=== PATIENT | male | born 1970 | race Caucasian/White ===

== ENCOUNTER 2024-12-23 08:28 | Outpatient (CLI) | payer BC, SELFPAY ==
--- NOTE | 2024-12-23 08:45 | MR_ITS ---
[facility] [address] [facility] [address] Phone:?[phone] Fax:?[phone] Referring Physician Information: Roly Ordonez M.D. [address] [place] [id number] Phone:?[phone] Fax:?[phone] Patient:?Alen Santoro D.O.B:?1970 Sex:?Male Phone:?[phone] [facility] MRN:?[id number] Exam Date:?12/23/2024 EXAM: MRI OF THE RIGHT KNEE CLINICAL INFORMATION: The patient is a 54-year-old with right knee pain. Evaluate for internal derangement. Evaluate medial meniscus. PRIOR SURGERY: The patient has a history of prior surgery to the region. COMPARISON STUDIES: Comparison is made to the prior MRI examination dated 10/19/2023. TECHNICAL INFORMATION: Imaging was performed on a high-field, 1.5 Lisa MR scanner. Axial proton-density and fat-suppressed T2 imaging of the right knee was performed in addition to sagittal proton-density and fat-suppressed proton- density imaging. Coronal proton-density and coronal STIR imaging was also performed. FINDINGS: Articular/Extraarticular collections: Effusion: Moderate. Popliteal cyst: Minimal. Loose bodies: No well-defined intra-articular loose bodies are present. Subcutaneous and extraarticular soft tissues: Within normal limits. Osseous structures: There is cortical irregularity, subcortical edema, and mild subcortical cystic change noted along the weightbearing surfaces of the medial femoral condyle and medial tibial plateau. The findings are in keeping with the chondral loss and meniscal abnormalities discussed below and have progressed in appearance when compared to the prior examination. No other bony abnormalities about the knee are seen. Ligamentous structures: ACL: The anterior cruciate ligament is abnormal in appearance. There is thickening of the ACL with indistinctness of its margins and increased intrasubstance signal intensity. The findings are in keeping with chronic residual changes of a prior incomplete ACL sprain. No transverse disruption of ACL fibers can be seen. PCL: Intact and normal in appearance. MCL: Chronic thickening of the MCL can be seen, in keeping with residual changes of a prior incomplete sprain. No evidence for acute injury is identified. No transverse disruption of MCL fibers is noted. LCL: Intact and normal in appearance. Posterolateral corner: Intact and normal in appearance. Posteromedial corner: No posteromedial corner soft tissue injury. Semimembranosus and pes anserine tendons demonstrate no tendinopathy or associated bursitis. Extensor mechanism/Patellar retinacular structures: Patellar tendon: Intact, without tendinopathy. Quadriceps tendon: Intact, without tendinopathy. Retinacula: The medial and lateral retinacula are intact. The medial patellofemoral ligament is intact. Medial compartment: Medial meniscus: Evidence for prior partial medial meniscectomy is thought to be present. There is recurrent or residual tearing involving the middle and posterior portions of the medial meniscal remnant seen on coronal series 7 image 19 and on sagittal series 6 image 24. No well-defined tearing of the anterior horn of the medial meniscus can be seen. No parameniscal cyst formation is identified. Medial femoral condyle: Broad-based, full-thickness chondral loss can be seen along the central and posterior articular surfaces of the medial femoral condyle with underlying bony change. Medial tibial plateau: Broad-based, full-thickness chondral loss can be seen along the central and medial weightbearing surfaces of the medial tibial plateau. Underlying bony changes are noted. Lateral compartment: Lateral meniscus: Poorly defined tearing of the anterior horn of the lateral meniscus is present and can be seen on sagittal series 12. The middle and posterior portions of the lateral meniscus appear intact. No parameniscal cyst formation is identified. Lateral femoral condyle: Grade II chondromalacia can be seen along the weightbearing surfaces of the lateral femoral condyle. No full-thickness chondral defects are seen. Lateral tibial plateau: Grade II to III chondromalacia can be seen along the posterior weightbearing surfaces of the lateral tibial plateau. Patellofemoral compartment: Patella: There are changes of full-thickness or near full-thickness chondral loss involving the medial patellar facet on axial series 4 image 12. No chondral injuries of the lateral facet are noted. Trochlea: Full-thickness and near full-thickness chondral loss can be seen along the central articular surfaces of the femoral trochlea. Neurovascular: No definite neurovascular abnormalities are seen. CONCLUSION: 1. Osteoarthritic changes of the medial joint compartment with full-thickness chondral loss and underlying bony change. The findings have progressed in appearance when compared to the prior examination. 2. Evidence for prior partial medial meniscectomy can be seen. There is recurrent or residual tearing of the middle and posterior portions of the medial meniscal remnant. 3. Chronic appearing sprain injuries of the ACL and MCL. 4. Poorly defined tearing involving the anterior horn of the lateral meniscus. 5. 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 6. Moderate knee joint effusion and minimal popliteal cyst. [facility] Electronically signed on 12/23/2024 10:23:00 AM by Shane Godinez M.D.
== END 2024-12-23 08:29 | disposition home or self-care (01) ==
LOC: MRI 08:29
PROVIDERS: PCP Family Medicine; Visit Provider Orthopaedic Surgery
DX: M25.561 Pain in right knee (principal); M17.11 Unilateral primary osteoarthritis, right knee; M23.203 Derangement of unspecified medial meniscus due to old tear or injury, right knee; S83.281A Other tear of lateral meniscus, current injury, right knee, initial encounter; M22.41 Chondromalacia patellae, right knee; M25.461 Effusion, right knee
CPT/HCPCS: 73721

== ENCOUNTER 2025-03-21 06:17 | Day surgery (SDC) | payer BC, SELFPAY ==
[2025-03-21] VITALS (23 sets, daily range): BP systolic 80–129; BP diastolic 58–80; PULSE 45–69; RESP 12–23; TEMP 36.2–36.5; O2SAT 93–100; BMI 24.4
[2025-03-21] MEDS: CELECOXIB 200 MG CAPSULE PO (06:11)
[2025-03-21] MEDS: OXYCODONE (CR) 10 MG TAB.ER.12H PO (06:11)
[2025-03-21] MEDS: MIDAZOLAM HCL 1 MG/ML inj IVP (06:11)
[2025-03-21] MEDS: ACETAMINOPHEN 500 MG TABLET 1000 MG PO (06:11)
[2025-03-21] MEDS: LACTATED RINGERS 1000 ML 1,000 ML 100 ML IV ×2 (06:15→08:34)
[2025-03-21] MEDS: SODIUM CHLORIDE 0.9 % (FLUSH) 10 ML SYRINGE IVF (07:06)
--- NOTE | 2025-03-21 07:18 | SUR.PREOP ---
TIME?OUT:?07 PT/RN/MDA?VERIFICATION?OF?SURGICAL?SITE,?PROCEDURE,?AND?CONSENT OBTAINED?PRIOR?TO?INVASIVE?PROCEDURE.right knee pt rn mda
[2025-03-21] MEDS: TRANEXAMIC ACID 100 MG/ML INJ 1000 MG IV (07:40)
--- NOTE | 2025-03-21 09:07 | CRLHL7_ITS ---
For Patients: As a result of the Cures Act, medical imaging exams and procedure reports are released immediately into your electronic medical record. You may view this report before your referring provider. If you have questions, please contact your health care provider. Indication: Postop TKA Technique: Two views right knee Findings/Impression: Hardware from a right total knee arthroplasty is in satisfactory position. Bone alignment is normal. No sign of acute fracture. Postop changes are within normal limits. Dictated by Magen Aguilar MD @ 03/21/2025 10:31:54 AM (Electronically Signed)
[2025-03-21] MEDS: LACTATED RINGERS 1000 ML 1,000 ML 75 ML IV (09:10)
--- NOTE | 2025-03-21 09:13 | P.ORPRC_ITS ---
Procedure Note Date of procedure: 03/21/25 Procedure: PREOPERATIVE DIAGNOSIS: Right knee osteoarthritis POSTOPERATIVE DIAGNOSIS: Right knee osteoarthritis NAME OF OPERATION: Right total knee arthroplasty SURGEON: Roly Ordonez MD RECORDS SPECIALIST: Almaz Pike PA-C ANESTHESIA: Spinal ESTIMATED BLOOD LOSS: 0 mL COMPLICATIONS: None SPECIMENS: None DRAINS: None PREOPERATIVE ANTIBIOTICS: Ancef 2 grams IMPLANTS: 1. J&J Attune # 7 posterior stabilized femur 2. # 8 fixed-bearing tibia 3. # 7 posterior stabilized, 7 mm fixed-bearing polyethylene 4. 41 patella INDICATIONS: The patient is a 55-year-old with a longstanding history of severe, unrelenting right knee pain secondary to end-stage (grade IV) right knee osteoarthritis. Despite appropriate nonoperative management, including activity modification, anti-inflammatories, geur-ths-mueaqjz pain medication, bracing, physical therapy, and injections they continue to have pain and disability. Operative intervention was offered. The risks, benefits and expected outcomes were discussed in detail. These i ncluded but were not limited to: Infection, bleeding, injury to blood vessel or nerve, venous thromboembolism. All questions were answered to their satisfaction. Use of an dairy and food laboratory assistant was necessary throughout the case for patient positioning and safety, soft tissue retraction, and closure. PROCEDURE: Spinal anesthesia was administered. The patient was placed supine on the operating table. The dairy and food laboratory assistant made sure the patient was positioned appropriately. The lower extremity was prepped and draped in the usual sterile fashion. The limb was exsanguinated with the Alfredo bandage. The pneumatic tourniquet was inflated to 300 mmHg. A standard anterior incision was made with the knee in flexion. Subcutaneous dissection was sharply taken through fascial layer #1. Full-thickness medial a nd lateral flaps were elevated. The dairy and food laboratory assistant retracted the soft tissues and protected them throughout the case. A standard subvastus approach was made. The patella was subluxed. The infrapatellar fat pad was preserved. The menisci and cruciate ligaments were sharply d?brided. Marginal osteophytes were d?brided with the rongeur. The drill was used to penetrate the femoral canal. The canal was aspirated and irrigated with pulse lavage. The intramedullary femoral guide was placed for a 5-degree valgus cut, removing 10 mm off the distal femur. The saw was used to make the cut. Whitesides line and the trans epicondylar axis were marked. The femoral sizing guide was pinned onto the distal femur. Three degrees of external rotation nicely parallels the transepicondylar axis. Pins were placed for posterior referencing. The four-in-one cutting guide was pinned onto the distal femur. The anterior, posterior, and chamfer cuts were made. The dairy and food laboratory assistant protected the collateral ligaments. The box cutting guide was pinned. The box cuts were made. The boxed trial was placed and was an excellent fit. Drill holes for the lugs were made. Attention was then turned to the proximal tibia. The extramedullary tibial guide was placed for a neutral varus/valgus cut with 5 degrees of posterior slope, removing 2 mm based off the medial tibial surface. The dairy and food laboratory assistant protected the collateral ligaments and the neurovascular bundle. The saw was used to make the cut. Trial components were placed. The knee was nicely balanced in both flexion and extension. The trial components were removed. The tray was placed in appropriate rotation, parallel to our tibial cutting pins. It was pinned by the dairy and food laboratory assistant and the drill and the punch were used. The tray was removed. The punch was used again. We placed a bone plug in the femoral canal. Attention was then turned to the patella. [place] patellar thickness was 26.5 mm. The lobster claw resection guide was used with the 9.5 mm glen. The saw was used to make the cut. We freehanded another mm or 2 off of the patella to get back to the morongo patellar thickness with the final construct. Drill holes were made by the dairy and food laboratory assistant. The trial was placed and was an excellent fit. Cancellous surfaces were irrigated with pulse lavage and thoroughly dried by the dairy and food laboratory assistant. We cemented the tibial component, then the femoral component. We impacted the 7 mm polyethylene onto the tibial tray. The knee was brought into full extension. We then cemented the patellar component. Excessive cement was removed. The cement was allowed to harden. The knee was taken through a range of motion and was found to be nicely balanced in both flexion and extension. The patella tracks centrally. The dairy and food laboratory assistant did a three minute dilute Betadine solution soak. The dairy and food laboratory assistant irrigated the wound with 3 liters of normal saline via pulse lavage. The dairy and food laboratory assistant reapproximated the extensor mechanism with #1 Vicryl in an interrupted [id number] fashion. The dairy and food laboratory assistant then ran the extensor mechanism with a #1 PDO Stratafix. The dairy and food laboratory assistant closed the subcutaneous tissues with a 3-0 Stratafix and the skin with a running 3-0 Stratafix in a subcuticular fashion. Glue was used to seal the skin. The dairy and food laboratory assistant placed a dry dressing. Sponge and needle counts were correct x2. The patient tolerated the procedure well. There were no apparent complications. They were carefully transferred to the hospital bed and taken to the postanesthesia care unit in satisfactory condition. PLAN: The patient will be mobilized with physical therapy. Aspirin will be used for DVT prophylaxis. They will be discharged to home once medically appropriate.
--- NOTE | 2025-03-21 10:13 | P.NB_ITS ---
Nerve Block Nerve Block Time Seen by Provider: 07:10 Date Seen: 03/21/25 Type of block requested by surgeon for post-operative analgesia: adductor canal Side: right Time out performed: Yes Verification of patient name: Yes Verification of date of : Yes Site marking: site marked Name of person performing procedure: Armando Continuous monitoring Was continuous monitoring of O2 sat, B/P, court recording monitor, recorded every 15 minutes?: Yes Procedure Checklist: sterile prep, needles and gloves Ultrasound guided. Images saved: Yes Medications given in 5ml increments after negative aspiration: Marcaine %: 0.25 mL: 15 Needle gauge: 20 Precedex (mcg): 25 Patient tolerated procedure well: Yes Block Charges Block Charge (with Pro Fee): Femoral Nerve Use of Ultrasound Machine for Block: Yes- US Guidance/pain block
--- NOTE | 2025-03-21 10:13 | P.ANES_ITS ---
Anesthesia Charges Start Date/Time Anesthesia Start Date: 03/21/25 Anesthesia Start Time: 07:36 Stop Date/Time Anesthesia Stop Date: 03/21/25 Anesthesia Stop Time: 10:01 Coding CPT Codes CPT Codes: ANESTH KNEE ARTHROPLASTY - 37749 ([id number]) P1 - NORMAL HEALTHY PATIENT, QK - JIG AND FIXTURE MAKER 2-4 CNCRNT ANETrisha PROC, QX - CROP RANCH HAND SVRyland W/ MED DIRECTION
--- NOTE | 2025-03-21 10:13 | P.NB_ITS ---
Nerve Block Nerve Block Time Seen by Provider: 07:10 Date Seen: 03/21/25 Type of block requested by surgeon for post-operative analgesia: geniculars Side: right Time out performed: Yes Verification of patient name: Yes Verification of date of : Yes Site marking: site marked Name of person performing procedure: Armando Continuous monitoring Was continuous monitoring of O2 sat, B/P, rand tacker, recorded every 15 minutes?: Yes Procedure Checklist: sterile prep, needles and gloves Ultrasound guided. Images saved: Yes Medications given in 5ml increments after negative aspiration: Marcaine %: 0.25 mL: 9 Needle gauge: 25 Patient tolerated procedure well: Yes Block Charges Block Charge (with Pro Fee): Genicular Nerve Block
--- NOTE | 2025-03-21 10:13 | W.ANESCHARGE ---
Anesthesia Charges Start Date/Time Anesthesia Start Date: 03/21/25 Anesthesia Start Time: 07:36 Stop Date/Time Anesthesia Stop Date: 03/21/25 Anesthesia Stop Time: 10:01 Coding CPT Codes CPT Codes: ANESTH KNEE ARTHROPLASTY - 71512 ([id number]) P1 - NORMAL HEALTHY PATIENT, QK - AIRCRAFT CLEANING SUPERVISOR 2-4 CNCRNT ANETrisha PROC, QX - SCARF AND ANNEAL OPERATOR SVRyland W/ MED DIRECTION
--- NOTE | 2025-03-21 10:17 | P.ANES_ITS ---
Anesthesia Charges Start Date/Time Anesthesia Start Date: 03/21/25 Anesthesia Start Time: 07:36 Stop Date/Time Anesthesia Stop Date: 03/21/25 Anesthesia Stop Time: 10:01 Coding CPT Codes CPT Codes: ANESTH KNEE ARTHROPLASTY - 94313 ([id number]) P1 - NORMAL HEALTHY PATIENT, QK - ADVERTISING SOLICITOR 2-4 CNCRNT ANES PROC
--- NOTE | 2025-03-21 10:17 | W.ANESCHARGE ---
Anesthesia Charges Start Date/Time Anesthesia Start Date: 03/21/25 Anesthesia Start Time: 07:36 Stop Date/Time Anesthesia Stop Date: 03/21/25 Anesthesia Stop Time: 10:01 Coding CPT Codes CPT Codes: ANESTH KNEE ARTHROPLASTY - 40353 ([id number]) P1 - NORMAL HEALTHY PATIENT, QK - CONCIERGE MANAGER 2-4 CNCRNT ANES PROC
--- NOTE | 2025-03-21 10:55 | SUR.PHASEI ---
patient met discharge criteria per anesthesia
--- NOTE | 2025-03-21 13:39 | SUR.PHASEII ---
up to BR to void states he feels the urge but cant at this time increasing fluids return to room from PT
== END 2025-03-21 14:05 | disposition home or self-care (01) ==
PROVIDERS: PCP Family Medicine; Visit Provider Orthopaedic Surgery
PROC: (CPT 27447; principal; 2025-03-21 07:30)
DX: M17.11 Unilateral primary osteoarthritis, right knee (principal); G89.18 Other acute postprocedural pain
CPT/HCPCS: 27447; 01402; 64447; 64454; 73560; 76942; 97110; 97116; 97161; A9270; C1776; J0665; J0690; J1100; J1171; J2250; J2371; J2405; J2704; J3010; J7120